=== PATIENT | female | born 1990 | race Caucasian/White ===

== ENCOUNTER 2018-09-17 21:32 | Inpatient (IN) ==
--- OUTSIDE RECORDS SUMMARY | 2018-09-17 21:35 | External Medical Summary | Continuity of Care Document ---
:1990 Author Name Greg Mercado, Provider Address Unavailable Unavailable , Care Team Providers Name Role Phone Kalani Mercado, Jaime [email or web address], UNKNOWN Unavailable Unavailable Unavailable Unavailable Unavailable Problems Post term over 40 weeks (645.10) (O48.0) Uterine size-date discrepancy in third trimester (649.63) (O 26.843) Encounter for supervision of normal firs t in third trimester (V22.0) (Z34.03) History of elective (V45.89) (Z98.890) Allergies and Adverse Reactions No Known Drug Allergies (Allergy) Medications Multiple Vitamin TABS Refills: 0 Procedures Non-stress test Date: 17-Sep-2018 US, Ob, Amniotic fluid index Date: 17-Sep-2018 History of Ovarian Cystectomy Status: Co mpleted Immunizations Influenza On: 22-Jan-2018 Tdap (Adacel) On: 27-Jun-2018 10:43 Lot #: [id number], [employer] Family History Mother Family history of endometriosis (V19.8) (Z84.2) Status: Acti ve Plan of Treatment Planned Encounters Appointment; Jaime Uriarte M.D. Start: 24-Sep-2018 11:50 Request Planned Observations Planned Goals not documented Results Non-stress test (Pending) Laboratory: In House 17-Sep-2018 16:42 Non-Stress Test Reactive Vital Signs 17-Sep-2018 13:58 Systolic 110 mm[Hg] Diastolic 72 mm[Hg] Height 67 in Weight 151 lb BMI Calculated 23.65 kg/m2 BSA Calculated 1.79 m2 11-Sep-2018 11:47 Systolic 110 mm[Hg] Diastolic 68 mm[Hg] Height 67 in Weight 149 lb BMI Calculated 23.34 kg/m2 BSA Calculated 1.78 m2 05-Sep-2018 11:37 Systolic 124 mm[Hg] Diastolic 80 mm[Hg] Height 67 in Weight 147 lb BMI Calculated 23.02 kg/m2 BSA Calculated 1.77 m2 30-Aug-2018 8:55 Systolic 128 mm[Hg] Diastolic 78 mm[Hg] Height 67 in Weight 147.4 lb BMI Calculated 23.09 kg/m2 BSA Calculated 1.78 m2 23-Aug-2018 8:54 Systolic 110 mm[Hg] Diastolic 82 mm[Hg] Height 67 in Weight 145.5 lb BMI Calculated 22.79 kg/m2 BSA Calculated 1.77 m2 Encounters Appointment; Lesly Centeno M.D. 17-Sep-2018 14:30 Encounter Diagnosis: Problem not documented Appointment; OB SC1, Nonstress Test 17-Sep-2018 14:00 Encounter Diagnosis: Problem not documented Appointment; Melissa Gaspar DO 11-Sep-2018 11:50 Encounter Diagnosis: Problem not documented Appointment; Evita Jamison M.D. 05-Sep-2018 10:50 Encounter Diagnosis: Problem not documented Appointment; Chuy Lane M.D. 30-Aug-2018 9:00 Encounter Diagnosis: Problem not documented Appointment; Florina Duarte M.D. 23-Aug-2018 9:00 Encounter Diagnosis: Problem not documented Appointment; OBGYN SC2, Ultrasound 17-Aug-2018 12:45 Encounter Diagnosis: Problem not documented Appointment; Silvia Hutchinson M.D. 16-Aug-2018 8:40 Encounter Diagnosis: Problem not documented Appointment; Manohar Garcia M.D. 25-Jul-2018 10:20 Encounter Diagnosis: Problem not documented Appointment; Jaime Uriarte M.D. 10-Jul-2018 8:40 Encounter Diagnosis: Problem not documented Appointment; Jaime Uriarte M.D. 27-Jun-2018 10:50 Encounter Diagnosis: Problem not documented Appointment; OB SC1, Procedure Rm 27-Jun-2018 10:50 Encounter Diagnosis: Problem not documented Appointment; OB SC1, Nursing Station 12-Jun-2018 10:45 Encounter Diagnosis: Problem not documented Appointment; Jaime Uriarte M.D. 24-Sep-2018 11:50 Encounter Diagnosis: Problem not documented
[2018-09-17] MEDS ORDERED: OXYTOCIN 30 UNITS/500 ML BAG IV PRN (22:25)
[2018-09-17 22:58] LABS: Hematocrit (blood only) 33.1 % (37-47); Hemoglobin 12.1 g/dL (12.0-16.0); Mean Platelet Volume 11.1 fL (7.4-10.4); Platelet Count 182 K/uL (130-400); RDW Coefficient of Variation 12.9 % (11.5-14.5); RDW Standard Deviation 40.7 fL (36.4-46.3); Red Blood Count 3.85 M/uL (4.2-5.4); White Blood Count 12.19 K/uL (4.8-10.8)
[2018-09-17 23:12] LABS: Mean Corpuscular Hgb Conc 36.6 g/dL (32-36)
[2018-09-18] MEDS ORDERED: BUPIVACAINE 0.25% 30 ML VIAL ONE (01:40)
[2018-09-18] MEDS ORDERED: fentaNYL citrate 100 MCG/2 ML VIAL ONE (01:40)
[2018-09-18] MEDS ORDERED: ePHEDrine sulfate 50 MG/ML AMP ONE (01:40)
[2018-09-18] MEDS ORDERED: fentaNYL 2MCG/ML ROPIV 1.25MG/ML 100 ML BAG EPI ONE (01:41)
[2018-09-18] MEDS: LACTATED RINGER'S 1,000 ML IV PRN ×3 (01:48→07:23)
--- NOTE | 2018-09-18 02:16 | Labor Progress Brief Note ---
Date of Service September 18, 2018 Subjective Requesting epidural. Assessment & Plan (1) SROM (spontaneous rupture of membranes): Laboring spontaneously, epidural requested. Present on Admission?: Yes Physical Exam Physical Exam: FHT Cat 1 with occ early decels. [place] Q4m. Results & Data Vital Signs (Past 12 Hours) Vital Signs Temp Pulse Resp BP Pulse Ox 09/18/18 02:07 90 100 09/18/18 02:02 91 H 98 09/18/18 01:58 78 115/68 09/18/18 01:57 80 100 09/18/18 01:52 85 99 09/18/18 01:04 36.8 C 86 20 122/69 09/17/18 23:53 36.7 C 75 20 113/67 09/17/18 22:48 36.8 C 09/17/18 21:43 36.6 C 89 20 115/74
--- NOTE | 2018-09-18 02:20 | Anesthesiology Consultation ---
Date of Service September 18, 2018 Assessment & Plan (1) Encounter for pre-operative examination: Chart Review Chart Review: Patient NOT seen in Pre Admission Testing and Acceptable Risk for Labor Epidural Consults Requested none ASA ASA2 Proposed Anesthesia Anesthesia Type: Labor Epidural Risk / Benefits Reviewed With: PT / POA / Parent / Guardian, Accepts Plan and Informed Consent Obtained History Height/Weight Height: 5 ft 7 in Weight: 68.492 kg Allergies Allergy/AdvReac Type Severity Reaction Status Date / Time No Known Allergies Allergy Verified 09/17/18 23:19 Medications Home Medications Medication Instructions Recorded Confirmed Last Taken vit-iron fum-folic ac 1 tab PO DAILY 09/17/18 09/17/18 09/17/18 08:00 [ Vitamin] Active Medications Generic Name Dose Route Start Last Admin Trade Name Freq PRN Reason Stop Dose Admin Lactated Ringer's 1,000 mls @ 125 mls/hr 09/17/18 22:25 09/18/18 02:48 Lr IV 09/19/18 22:24 999 mls/hr .Q8H PRN Administration L&D Protocol Protocol NPO Date Last Intake of Fluids: 09/18/18 Time Last Intake of Fluids: 02:48 Date Last Intake of Solids: 09/17/18 Time Last Intake of Solids: 16:30 Past Medical History Medical History Ovarian torsion left side Exercise / Class Metabolic Activity II 4-5 Yardwork/Stairs/Walk up hill Past Surgical History Surgical History History of removal of ovarian cyst Past Anesthesia History No Hx of Anesthesia Complications History of PONV No Hx of PONV and Hx of Motion Sickness Social History Smoking Status: Never smoker Hx Alcohol Use: No Hx Substance Use: No substance use type: does not use Review of Systems Patient denies history of abnormal bleeding or bleeding disorder. Patient denies active use of anticoagulants other than low dose aspirin. Patient denies numbness, tingling or weakness in lower extremities. Patient denies active symptoms of GERD. Physical Exam Vital Signs Last Vital Signs Temp 36.6 C 09/18/18 02:45 Pulse 101 H 09/18/18 02:44 Resp 18 09/18/18 02:45 BP 119/62 09/18/18 02:44 Pulse Ox 97 09/18/18 02:42 Neck normal visual inspection; neck extension not limited Respiratory normal respiratory effort, lungs clear to auscultation Auscultation: lungs clear to auscultation bilaterally Cardiovascular Rate/Rhythm: regular rate and regular rhythm Heart Sounds: no murmur Neurologic moves all extremities Motor/Sensory: no sensory deficit Psychiatric Orientation: alert and oriented x 3 Testing Laboratory Results 09/17/18 22:37
[2018-09-18] MEDS ORDERED: ePHEDrine sulfate 50 MG/ML AMP IV PRN (02:57)
[2018-09-18] MEDS ORDERED: DiphenhydrAMINE HCL 50 MG/ML VIAL IV PRN (02:57)
[2018-09-18] MEDS ORDERED: fentaNYL 2MCG/ML ROPIV 1.25MG/ML 100 ML BAG EPI PRN (02:57)
[2018-09-18] MEDS ORDERED: ONDANSETRON INJ 2 MG/ML 2 ML VIAL IV PRN (02:57)
[2018-09-18] MEDS ORDERED: NALOXONE HCL 0.4 MG/1 ML VIAL/CARP IV PRN (02:57)
[2018-09-18] MEDS ORDERED: NALBUPHINE HCL INJ 10 MG/ML AMP IV PRN (02:57)
[2018-09-18] MEDS ORDERED: LACTATED RINGER'S 1,000 ML IV PRN (02:57)
[2018-09-18] MEDS ORDERED: NALOXONE HCL 1 MG in SODIUM CHLORIDE 0.9% 1000ML 1,000 ML IV PRN (02:57)
--- NOTE | 2018-09-18 06:33 | Labor Progress Brief Note ---
Date of Service September 18, 2018 Subjective Comfortable with epidural, resting L lateral. Assessment & Plan (1) SROM (spontaneous rupture of membranes): Patient has been making spontaneous change, though contractions have spaced widely at this point. I advised the patient I am about to begin a for another patient now, so will re-examine her after that delivery is done and if cervical change has not continued, she can anticipate having some pitocin started at that time. She is agreeable to this. Present on Admission?: Yes Physical Exam Physical Exam: Per RN, exam last hour was 4.5cm. FHT Cat 1 [place] has spaced to Q6-7min. Results & Data Vital Signs (Past 12 Hours) Vital Signs Temp Pulse Resp BP Pulse Ox 09/18/18 06:27 85 97/55 L 96 09/18/18 06:22 91 H 97 09/18/18 06:17 83 97 09/18/18 06:13 78 16 107/60 09/18/18 06:12 86 97 09/18/18 06:07 78 97 09/18/18 06:02 84 97 09/18/18 05:57 81 97/59 L 97 09/18/18 05:52 81 97 09/18/18 05:47 90 97 09/18/18 05:44 129 H 91/61 L 09/18/18 05:43 130 H 18 88/54 L 09/18/18 05:42 131 H 97 09/18/18 05:37 98 H 97 09/18/18 05:32 90 97 09/18/18 05:30 36.7 C 18 09/18/18 05:27 107 H 98/58 L 97 09/18/18 05:22 111 H 97 09/18/18 05:17 103 H 97 09/18/18 05:12 96 H 102/61 96 09/18/18 05:07 82 96 09/18/18 05:02 94 H 97 09/18/18 04:57 96 H 100/55 L 97 09/18/18 04:52 97 H 96 09/18/18 04:47 88 97 09/18/18 04:46 94 H 104/56 L 09/18/18 04:42 84 96 09/18/18 04:37 88 96 09/18/18 04:32 86 96 05/14/19 04:29 82 100/61 05/14/19 04:27 86 97 09/18/18 04:22 89 97 09/18/18 04:17 82 97 09/18/18 04:15 80 111/53 L 09/18/18 04:12 89 88/52 L 98 09/18/18 04:07 88 96 09/18/18 04:02 96 H 96 09/18/18 03:58 88 96/53 L 09/18/18 03:57 85 96 09/18/18 03:52 99 H 95 09/18/18 03:47 99 H 96 09/18/18 03:43 86 16 102/58 L 09/18/18 03:42 86 96 09/18/18 03:37 90 97 09/18/18 03:32 83 97 09/18/18 03:27 84 102/57 L 97 09/18/18 03:24 86 94/53 L 09/18/18 03:22 91 H 96 09/18/18 03:20 36.6 C 84 18 107/58 L 09/18/18 03:18 85 105/59 L 09/18/18 03:17 86 96 09/18/18 03:15 94 H 105/56 L 09/18/18 03:12 89 96 09/18/18 03:11 87 97/54 L 09/18/18 03:09 83 105/57 L 09/18/18 03:07 86 97 09/18/18 03:06 88 18 112/59 L 09/18/18 03:02 86 18 104/55 L 97 09/18/18 03:00 96 H 18 108/57 L 09/18/18 02:57 95 H 97 09/18/18 02:56 93 H 112/60 09/18/18 02:53 96 H 115/64 09/18/18 02:52 93 H 99 09/18/18 02:50 92 H 110/61 09/18/18 02:48 98 H 106/63 09/18/18 02:47 98 H 96 09/18/18 02:45 36.6 C 18 09/18/18 02:44 101 H 119/62 09/18/18 02:42 91 H 97 09/18/18 02:41 88 112/60 09/18/18 02:38 96 H 20 124/61 09/18/18 02:37 88 97 09/18/18 02:35 92 H 20 129/67 09/18/18 02:32 84 97 09/18/18 02:27 89 100 09/18/18 02:22 86 100 09/18/18 02:17 80 100 09/18/18 02:12 98 H 100 09/18/18 02:07 90 100 09/18/18 02:02 91 H 98 09/18/18 01:58 78 20 115/68 09/18/18 01:57 80 100 09/18/18 01:52 85 99 09/18/18 01:04 36.8 C 86 20 122/69 09/17/18 23:53 36.7 C 75 20 113/67 09/17/18 22:48 36.8 C 09/17/18 21:43 36.6 C 89 20 115/74
[2018-09-18] MEDS: OXYTOCIN 30 UNITS/500 ML BAG IV PRN ×2 (08:46→12:03)
--- NOTE | 2018-09-18 08:52 | Obstetrical Progress Note ---
Date of Service September 18, 2018 Assessment & Plan (1) SROM (spontaneous rupture of membranes): - change of shift note - tracing Cat II - pt comfortable with epidural - ctx's have spaced with epidural - IUPC placed - will start Pitocin for secondary arrest of dilation Subjective Patient comfortable with epidural Physical Exam Gastrointestinal (Abdomen): Gravid, vtx, (+) FHT's (+) palpable ctx's, EFW 7 lbs Genitourinary: 4-5/100/-1, IUPC placed, Tracing Cat II Results & Data Vital Signs (Past 12 Hours) Vital Signs Temp Pulse Resp BP Pulse Ox 09/18/18 08:47 78 98 09/18/18 08:43 81 99/54 L 09/18/18 08:42 82 100 09/18/18 08:37 111 H 99 09/18/18 08:32 107 H 98 09/18/18 08:29 79 120/72 09/18/18 08:27 87 96 09/18/18 08:22 83 97 09/18/18 08:17 94 H 95 09/18/18 08:14 80 106/63 09/18/18 08:12 81 96 09/18/18 08:07 81 96 09/18/18 08:02 83 96 09/18/18 07:57 87 106/64 98 09/18/18 07:52 84 98 09/18/18 07:47 75 98 09/18/18 07:42 83 101/62 99 09/18/18 07:37 77 97 09/18/18 07:32 87 97 09/18/18 07:27 88 98/66 L 96 09/18/18 07:22 86 99 09/18/18 07:17 89 97 09/18/18 07:14 88 90/56 L 09/18/18 07:12 85 97 09/18/18 07:07 99 H 98 09/18/18 07:02 98.2 F 88 20 98 09/18/18 06:57 86 97/56 L 96 09/18/18 06:52 84 96 09/18/18 06:47 87 95 09/18/18 06:44 80 103/57 L 09/18/18 06:42 84 96 09/18/18 06:37 88 95 09/18/18 06:32 86 96 09/18/18 06:27 85 97/55 L 96 09/18/18 06:22 91 H 97 09/18/18 06:17 83 97 09/18/18 06:13 78 16 107/60 09/18/18 06:12 86 97 09/18/18 06:07 78 97 09/18/18 06:02 84 97 09/18/18 05:57 81 97/59 L 97 09/18/18 05:52 81 97 09/18/18 05:47 90 97 09/18/18 05:44 129 H 91/61 L 09/18/18 05:43 130 H 18 88/54 L 09/18/18 05:42 131 H 97 09/18/18 05:37 98 H 97 09/18/18 05:32 90 97 09/18/18 05:30 98.1 F 18 09/18/18 05:27 107 H 98/58 L 97 09/18/18 05:22 111 H 97 09/18/18 05:17 103 H 97 09/18/18 05:12 96 H 102/61 96 09/18/18 05:07 82 96 09/18/18 05:02 94 H 97 09/18/18 04:57 96 H 100/55 L 97 09/18/18 04:52 97 H 96 09/18/18 04:47 88 97 09/18/18 04:46 94 H 104/56 L 09/18/18 04:42 84 96 09/18/18 04:37 88 96 09/18/18 04:32 86 96 09/18/18 04:29 82 100/61 09/18/18 04:27 86 97 09/18/18 04:22 89 97 09/18/18 04:17 82 97 09/18/18 04:15 80 111/53 L 09/18/18 04:12 89 88/52 L 98 09/18/18 04:07 88 96 09/18/18 04:02 96 H 96 09/18/18 03:58 88 96/53 L 09/18/18 03:57 85 96 09/18/18 03:52 99 H 95 09/18/18 03:47 99 H 96 09/18/18 03:43 86 16 102/58 L 09/18/18 03:42 86 96 09/18/18 03:37 90 97 05/14/19 03:32 83 97 09/18/18 03:27 84 102/57 L 97 09/18/18 03:24 86 94/53 L 09/18/18 03:22 91 H 96 09/18/18 03:20 97.9 F 84 18 107/58 L 09/18/18 03:18 85 105/59 L 09/18/18 03:17 86 96 09/18/18 03:15 94 H 105/56 L 09/18/18 03:12 89 96 09/18/18 03:11 87 97/54 L 09/18/18 03:09 83 105/57 L 09/18/18 03:07 86 97 09/18/18 03:06 88 18 112/59 L 09/18/18 03:02 86 18 104/55 L 97 09/18/18 03:00 96 H 18 108/57 L 09/18/18 02:57 95 H 97 09/18/18 02:56 93 H 112/60 09/18/18 02:53 96 H 115/64 09/18/18 02:52 93 H 99 09/18/18 02:50 92 H 110/61 09/18/18 02:48 98 H 106/63 09/18/18 02:47 98 H 96 09/18/18 02:45 97.9 F 18 09/18/18 02:44 101 H 119/62 09/18/18 02:42 91 H 97 09/18/18 02:41 88 112/60 09/18/18 02:38 96 H 20 124/61 09/18/18 02:37 88 97 09/18/18 02:35 92 H 20 129/67 09/18/18 02:32 84 97 09/18/18 02:27 89 100 09/18/18 02:22 86 100 09/18/18 02:17 80 100 09/18/18 02:12 98 H 100 09/18/18 02:07 90 100 09/18/18 02:02 91 H 98 09/18/18 01:58 78 20 115/68 09/18/18 01:57 80 100 09/18/18 01:52 85 99 09/18/18 01:04 98.2 F 86 20 122/69 09/17/18 23:53 98.1 F 75 20 113/67 09/17/18 22:48 98.2 F 09/17/18 21:43 97.9 F 89 20 115/74
[2018-09-18 12:11] LABS: Base Excess Cord Venous Blood -2.7 mEq/L (-7.7-1.9); Cord Venous Blood HCO3 24 mmol/L (18.4-26.8); Cord Venous Blood PCO2 48 mmHg (30.4-57.2); Cord Venous Blood PO2 21 mmHg (14.1-43.3); Cord Venous Blood pH 7.31 (7.20-7.44)
[2018-09-18 12:15] LABS: Base Excess Cord Arterial Bld -3.5 mEq/L (-9-1.8); CO2 Cord Arterial Blood 62 mmHg (39.1-73.5); HCO3 Cord Arterial Blood 25 mmol/L (19.7-28.5); O2 Saturation Cord Venous Bld < 60.0 % (<68); PO2 Cord Arterial Blood 15.5 % (4.1-31.7); pH Cord Arterial Blood 7.23 (7.1-7.38)
[2018-09-18] MEDS ORDERED: ACETAMINOPHEN 325 MG TAB PO PRN (12:58)
[2018-09-18] MEDS ORDERED: SUPERCREAM 0.870% 15 GM JAR EXT PRN (12:58)
[2018-09-18] MEDS ORDERED: ACETAMINOPHEN W/CODEINE #3 1 TAB PO PRN (12:58)
[2018-09-18] MEDS ORDERED: DIPHTHERIA/TETANUS/PERTUSSIS 0.5 ML SYR/VIAL IM ONE (12:58)
[2018-09-18] MEDS ORDERED: HYDROCORTISONE ACETATE 25 MG SUPP PR PRN (12:58)
[2018-09-18] MEDS ORDERED: OXYTOCIN 30 UNITS/500 ML BAG IV PRN (12:58)
[2018-09-18] MEDS ORDERED: BENZOCAINE 20% AER SPR 82.5 GM CAN EXT PRN (12:58)
--- NOTE | 2018-09-18 14:00 | Delivery Summary ---
DATE OF OPERATION: 09/18/2018 FINDINGS: Viable female with Apgars of 8 and 9. Baby delivered over spontaneously intact perineum with bilateral periurethral second-degree tears. Cord gases, cord blood samples obtained. Placenta delivered spontaneously. Lacerations repaired with 4-0 Vicryl in routine fashion. Estimated blood loss: 300 mL LABOR NOTE: The patient is a 28-year-old 2, para 0 with an EDC of 16 September at 40+ weeks gestational age who presented to labor and delivery with spontaneous rupture of membranes. The patient had been having contractions for 12 hours prior to rupture of her membranes. Membranes ruptured at approximately 2000 hours on 17 of September. Contractions increased from intensity. The patient had had a benign course. Blood type O positive, antibody negative, rubella immune, hepatitis B negative. She had negative cell free DNA screening, she had normal 1 hour Glucola x2, and a negative third trimester beta strep culture. Upon admission, the patient was noted be 4 cm dilated, 90% effaced, -1 station. Anesthesia was consulted and an epidural was placed. Following placement of the epidural, the patient's contractions spaced out. Delivering physician assumed care for the patient at 0730 hours with no cervical change. Pitocin was initiated per augmentation protocol. The patient progressed to full dilatation and began her second stage. She pushed for approximately 20 minutes delivering the viable female infant. Cord was clamped and cut. Cord gases, cord blood samples obtained. Placenta was delivered spontaneously. Inspection of the perineum showed an intact perineal body with bilateral second-degree periurethral tears. These were closed with running 4-0 Vicryl sutures. Estimated blood loss 300 mL. Sponge and needle count was correct. I attest to the content of the Intraoperative Record and any orders documented therein. Any exception s are noted below.
--- NOTE | 2018-09-18 16:12 | Anesthesia Procedure Note ---
Date of Service September 18, 2018 Anesthesia Post Epidural Note Vital Signs Vital Signs: Temp Pulse Resp BP Pulse Ox 37.9 C H 125 H 20 105/68 100 09/18/18 14:30 09/18/18 14:32 09/18/18 07:02 09/18/18 14:32 09/18/18 11:37 Pain Intensity Bilateral Lower Abdomen: Pain Intensity: 0 Notes Mental Status: alert / awake / arousable Patient Amnestic to Procedure: Yes Nausea / Vomiting: adequately controlled Pain: adequately controlled Airway Patency, RR, SpO2: stable & adequate BP & HR: stable & adequate Hydration State: stable & adequate Neuraxial Anesthesia: was administered and sensory block resolved Anesthetic Complications: no major complications apparent and Pt Satisfied with anesthetic care Epidural: Removed without complications and With tip intact
[2018-09-18] MEDS: DOCUSATE SODIUM 100 MG CAP PO SCH (20:27)
[2018-09-18] MEDS: IBUPROFEN 600 MG TAB PO PRN (21:09)
[2018-09-19] MEDS: IBUPROFEN 600 MG TAB PO PRN ×4 (01:44→20:01)
--- NOTE | 2018-09-19 07:45 | Obstetrical Progress Note ---
Date of Service September 19, 2018 Assessment & Plan (1) SROM (spontaneous rupture of membranes): - routine care - doing well Subjective Ambulation: ambulating normally Feeding Type:: breast feeding Physical Exam Vital Signs (Past 24 Hours) Last Vital Signs Temp 98.2 F 09/19/18 04:20 Pulse 68 09/19/18 04:20 Resp 18 09/19/18 04:20 BP 100/64 09/19/18 04:20 Pulse Ox 98 09/18/18 20:30 Constitutional WD/WN, vitals as above Gastrointestinal (Abdomen) Fundus firm below U Musculoskeletal (-) deep calf tenderness
[2018-09-19] MEDS: DOCUSATE SODIUM 100 MG CAP PO SCH ×2 (09:11→20:00)
[2018-09-19] MEDS: PRENATAL VITAMIN 1 TAB PO SCH (09:11)
[2018-09-19] MEDS ORDERED: BISACODYL 5 MG TABEC PO SCH (20:00)
[2018-09-20] MEDS: IBUPROFEN 600 MG TAB PO PRN ×2 (01:28→09:37)
--- NOTE | 2018-09-20 06:58 | Obstetrical Progress Note ---
Date of Service September 20, 2018 Assessment & Plan (1) Status post vaginal delivery: Patient is a 28 year old PPD 2 s/p -Vital signs WNL bp 123/86 T36.7, -Hemoglobin was 12.1 on admission. no si/sx of anemia. -Pt is doing clinically well -Continue to encourage ambulation as tolerated, Monitor and control pain with motrin prn, Continue diet as tolerated. -Continue to support and encourage breast feeding -Counseled patient on discharge instructions including Vaginal bleeding, fevers, followup, lifting restrictions, breast feeding, vitamins, and nothing in the vagina for 6 weeks. Pt was agreeable -Plan for d/c today Supervising Physician Co-Signing Physician Notes Resident Physician Supervision Note: I was present with Dr. Garcia during the history and exam. I discussed the case with the resident and agree with the findings and plan as documented in the note. Any exceptions or clarifications are listed here: PPD2 doing well, DC home today. Documented By: Melissa Gaspar DO FACOOG Subjective Patient sitting up in bed with baby in her arms. Reports no acute events overnight, ready for d/c. Patient is tolerating her diet, ambulating, passing gas, voiding and having bm. Reports moderate lochia. Denies H/A, chest pain, palpitations and uti syx. Answered all questions, no concerns at present, pain is well controlled Physical Exam Physical Exam: Constitutional: WD/WN, vitals as above no acute distress Eyes: normal visual pineda by confrontation Neck: normal visual inspection Respiratory: normal respiratory effort, lungs clear to auscultation Cardiovascular: RRR, no murmur, no edema Heart Sounds: normal S1 and normal S2 Extremities: no calf tenderness Gastrointestinal (Abdomen): Uterus firm and below the umbilicus Results & Data Vital Signs (Past 12 Hours) Vital Signs Temp Pulse Resp BP 09/20/18 00:00 36.7 C 74 18 123/86 09/19/18 20:00 36.9 C 67 18 112/68 Medications Administered Current Inpatient Medications Acetaminophen (Tylenol) 650 mg PO Q6H PRN PRN Reason: Pain/SCHAEFFER/Fever Stop: 10/18/18 12:57 Acetaminophen/Codeine Phosphate (Tylenol W/Codeine #3) 1 - 2 tab PO Q4H PRN PRN Reason: Pain not controlled with... Stop: 10/18/18 12:57 Benzocaine (Dermoplast Pain Relieving [place]) 1 appln EXT PRN PRN PRN Reason: Perineal Discomfort Stop: 10/18/18 12:57 Cocaine HCl (Supercream 0.870%) 1 gm EXT BID PRN PRN Reason: Hemorrhoidal Inflammation Stop: 10/02/18 12:57 Docusate Sodium (Colace) 100 mg PO BID [facility] Stop: 10/18/18 20:59 Last Admin: 09/19/18 20:00 Dose: 100 mg Documented by: Hydrocortisone (Anusol Hc) 25 mg VA BID PRN PRN Reason: Hemorrhoidal Inflammation Stop: 10/18/18 12:57 Oxytocin (Pitocin) 30 units in 500 mls @ 333.333 mls/hr IV .Q1H30M PRN; Protocol PRN Reason: Bleeding Control Stop: 10/17/18 22:24 Oxytocin (Pitocin) 30 units in 500 mls @ 333.333 mls/hr IV .Q1H30M PRN; Protocol PRN Reason: Bleeding Control Stop: 10/18/18 12:57 Ibuprofen (Motrin) 600 mg PO Q4H PRN PRN Reason: Pain/SCHAEFFER/Cramping/Fever Stop: 10/18/18 12:57 Last Admin: 09/20/18 01:28 Dose: 600 mg Documented by: Erickat Multivit/[place]/Iron/Folic Ac ( Vitamin) 1 tab PO QAM [facility] Stop: 10/19/18 08:59 Last Admin: 09/19/18 09:11 Dose: 1 tab Documented by: Resident Activity Tracking Resident Involvement: Resident Care Provided Care Provided: Adult Hospital Medicine
[2018-09-20 08:10] LABS: Hematocrit (blood only) 34.7 % (37-47); Hemoglobin 11.9 g/dL (12.0-16.0)
[2018-09-20] MEDS: DOCUSATE SODIUM 100 MG CAP PO SCH (09:37)
[2018-09-20] MEDS: PRENATAL VITAMIN 1 TAB PO SCH (09:37)
== END 2018-09-20 15:08 | disposition home or self-care (01) | DRG 807 ==
LOC: OPB 21:32 → 4S1 21:33 → 4S2 09-18 15:06